=== PATIENT | female | born 1975 ===

== ENCOUNTER 2019-03-15 05:12 | Day surgery (SDC) | payer OTHER ==
[~2019-03-15 05:12] MED LIST: FOLIC ACID0.8 M1 PO; IRON18 MG PO; LYSTEDA650 MG PO; PROTONIX40 MG PO; SYNTHROID137 MCG PO; [UNRECOGNIZED DRUG - OTHER] PO
== END 2019-03-15 12:20 | disposition home or self-care (01) ==
LOC: CIR.AMB 05:12
DX: N92.0 Excessive and frequent menstruation with regular cycle (principal)